=== PATIENT | female | born 1965 | race Caucasian/White ===

== ENCOUNTER 2022-08-11 09:31 | Emergency (ER) | payer BC, SELFPAY ==
[2022-08-11 09:40] VITALS: BP 129/77; PULSE 68; RESP 14; TEMP 36.5; O2SAT 100
--- NOTE | 2022-08-11 11:25 | ED.GENADULT ---
HPI - General Adult General Chief complaint: Ear Stated complaint: sore throat diarrhea cough urine strong Time Seen by Provider: 08/11/22 11:25 Source: patient, RN notes reviewed and old records reviewed Mode of arrival: ambulatory Limitations: no limitations History of Present Illness HPI narrative: 57 year old female who presents to [facility] with complaints of coughing up greenish mucous, wheezing, sinus drainage, sore throat, nasal drainage with sinus pain for the past 4 days, reports has coughed so hard she has peed on self. Patient also reports that she has had 11 days of diarrhea of loose brown stools no blood or mucous noted. Patient states that her urine is strong. patient reports that she has been taking Mucinex max release for her symptoms. MD complaint: cough, congestion,diarrhea, sinus pain ,strong urine Onset (ago): day(s) (4 days URI symptoms, 11 days diarrhea) Treatments prior to arrival: other (mucinex max release) Review of Systems Review of Systems: CONSTITUTIONAL: Denies fever, chills, or sweats. EYES: Denies visual changes, redness, or discharge. ENT: Reports rhinorrhea, congestion, sore throat, no otalgia. CARDIOVASCULAR: Denies chest pain, palpitations, or edema. RESPIRATORY: Reports cough no dyspnea. GASTROINTESTINAL: Denies abdominal pain, nausea, vomiting, reports 11 days of diarrhea. GENITOURINARY: Denies dysuria or hematuria. SKIN: Denies rash or itching. MUSCULOSKELETAL: Denies back pain, joint pain, or myalgia. NEUROLOGIC: Denies headache, numbness, or weakness. PSYCHIATRIC: Denies anxiety or depression. All systems reviewed & are unremarkable except as noted in HPI and below [facility] Past Medical History Medical History (Updated 08/12/22 @ 15:39 by Mary Loyd NP) GERD (gastroesophageal reflux disease) Hypertension Irritable bowel syndrome with constipation Surgical History Surgical History (Updated 08/12/22 @ 15:40 by Mary Loyd NP) History of rectal surgery anal fistula repair Social History Social History (Updated 08/12/22 @ 15:49 by Mary Loyd NP) Smoking status: Never smoker Alcohol intake: unknown Substance use type: does not use Gender identity (if verbalized by the patient): Female Comments At time of signature, agree with nursing past medical, surgical, social and family history. There is no relevant family history pertinent to the presenting complaint Exam Narrative: GENERAL: Well-appearing, well-nourished, and in no acute distress. HEAD: Normocephalic, atraumatic. EYES: PERRLA and EOMI. ENT: Nares clear, clear rhinorrhea no epistaxis. Mucous membranes moist.TM's normal throat pink with no lesions or exudates or swelling NECK: Supple.no lymphadenopathy CHEST: Clear to auscultation. No respiratory distress.cough with mucous production reported HEART: Regular rate and rhythm. No murmur heard. Normal peripheral pulses. ABDOMEN: Soft, nontender to palpation,, nondistended, normal active bowel sounds.reports diarrhea X11 days EXTREMITIES: Normal range of motion. No edema, reports some leg pain. SKIN: Warm, dry, no rash. NEURO: No focal deficits. Alert and oriented x3. Course Course Emergency Course: Patient is aware of diagnosis, understands and agrees to treatment plan.? Anticipatory guidance given.? Patient agrees to follow-up as directed and is aware of reasons to seek care at the emergency department. Portions of this record may have been created with voice recognition software Level of Care: Express Care Visit Vital Signs Vital signs: Vital Signs Temperature 36.5 C 08/11/22 09:40 Pulse Rate 68 08/11/22 09:40 Respiratory Rate 14 08/11/22 09:40 Blood Pressure 129/77 08/11/22 09:40 Pulse Oximetry 100 08/11/22 09:40 Oxygen Delivery Room Air 08/11/22 09:40 Temperature 36.5 C 08/11/22 09:40 Pulse Rate 68 08/11/22 09:40 Respiratory Rate 14 08/11/22 09:40 Blood Pressure 129/77 08/11/22 09:40 Pulse Oximetry
== END 2022-08-11 12:20 | disposition home or self-care (01) ==
PROVIDERS: Emergency Provider Registered Nurse
DX: B34.9 Viral infection, unspecified (principal); R19.7 Diarrhea, unspecified; K21.9 Gastro-esophageal reflux disease without esophagitis; I10 Essential (primary) hypertension
CPT/HCPCS: 81003; 87426; 87804; 99213; C9803; G0463